=== PATIENT | female | born 2000 | race Caucasian/White ===

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

== ENCOUNTER 2019-01-21 23:16 | Emergency (ER) | payer MEDICAID, SELFPAY ==
[2019-01-21 23:18] VITALS: BP 131/78; PULSE 111; RESP 18; TEMP 36.8; O2SAT 95; BMI 47.7
--- NOTE | 2019-01-21 23:35 | ED.DCSUM_ITS ---
- ER Visit Summary Date of Service: 01/21/19 Chief Complaint: Wound check History of Present Illness: The patient is a 18 F who had a blister on her right posterior heel from a new pair shoes. He states she has had difficulty with that healing up as she has to wear those at this work but she has been putting a Band-Aid on it. Birgit her friend who is a state tested nurse janitorial assistant noted some black stuff in the blistered area she was concerned and told her to come to the emergency department. Physical Examination: There is a blister that has opened on the posterior right heel. In this sloughing area of skin is fuzz from her socks/shoe. No evidence of secondary infection Emergency Department Course and Treatment: Sock fuzz was removed with gentle washing and patient tolerated procedure well. Wound care was discussed and how best to treat this. She was advised if this does not heal she may end up with a chronic ulcer Impression: 1. Wound check-right heel blister This note was generated with [employer] dictation software. It may contain incorrect words, spelling, and punctuation that were not noted in review of the chart prior to signing ED Disposition - Plan for ED Patient: Disposition: Home or Assisted Living Instructions: Blister Referrals: Nataly Araujo MD [Primary Care Provider] - As Needed
== END 2019-01-21 23:46 | disposition home or self-care (01) ==
PROVIDERS: Emergency Provider Emergency Medicine; Family Provider Pediatrics; PCP Pediatrics
DX: S90.821A Blister (nonthermal), right foot, initial encounter (principal); X58.XXXA Exposure to other specified factors, initial encounter; Y93.9 Activity, unspecified; Y92.9 Unspecified place or not applicable; Y99.9 Unspecified external cause status; J45.909 Unspecified asthma, uncomplicated; E66.9 Obesity, unspecified
CPT/HCPCS: 99283

== ENCOUNTER 2019-04-13 15:50 | Emergency (ER) | payer MEDICAID, SELFPAY ==
[2019-04-13 15:54] VITALS: BP 120/78; PULSE 90; RESP 17; TEMP 36.9; O2SAT 98; BMI 46.1
--- NOTE | 2019-04-13 15:55 | EKG12_ITS ---
Test Reason : ANXIETY Blood Pressure : / mmHG Vent. Rate : 094 BPM Atrial Rate : 098 BPM P-R Int : 140 ms QRS Dur : 094 ms QT Int : 382 ms P-R-T Axes : 058 007 029 degrees QTc Int : 477 ms Sinus rhythm with marked sinus arrhythmia Otherwise normal ECG Confirmed by GERRI GARCIA, RAVI ([id number]), assistant production editor JORDI HOWARD ([id number] on 04/19/2019 1:30:50 PM Referred By: SHASTA Confirmed By:GERI TALLEY MD
--- NOTE | 2019-04-13 15:59 | ED.RN ---
NO OLD EKG
--- NOTE | 2019-04-13 16:06 | ED.DCSUM_ITS ---
- ER Visit Summary Date of Service: 04/13/19 Chief Complaint: Chest pain resolved History of Present Illness: The patient is a 18 F history of asthma and panic attacks. No history of cardiac disease. No history of DVT or PE. No recent travel, surgery or immobilization. She is not on control pills. States about a half an hour ago had onset of chest discomfort that lasted 2 minutes and resolved. It was sharp in nature. Currently is having no symptoms. Denies any leg pain or swelling. No pleuritic pain. No hemoptysis. She is not short of breath. No family history of cardiac disease at a young age or clotting disorder or blood clots. Physical Examination: Well-appearing 18-year-old no acute distress vital signs are stable afebrile. Pulse ox 90% on room air no signs of hypoxia. H EENT exam unremarkable. Neck nontender. No JVD. No lymphadenopathy. Lungs clear to auscultation bilaterally. Equal symmetrical. Heart regular rate and rhythm no murmur rate about 90. Chest wall nontender. No ecchymosis or bruising. No subcu air crepitance. Abdomen soft nontender normal bowel sounds no peritoneal signs. Extremities moves all 4. Equal symmetrical radial pulses. Calves are nontender without edema or cords. Back nontender. Neurologic exam awake alert no focal motor deficits. Test Results: EKG performed by respiratory staff shows a sinus rhythm rate of 94 with no signs of acute IN or ischemia. No [id number]. I did review the patient's old records and the last 1:45 thousand 18 she had an unremarkable chest x-ray. Granted she is pain-free and has a normal exam I do not think a chest x-ray is needed at this time. Emergency Department Course and Treatment: Pain is resolved. Exam is normal I think she needs no further work-up. I do not think this was a cardiac etiology and she has no PE risk factors. Her last menstrual period was a week ago. Treatment Plan: Outpatient follow-up as needed. Return if feeling a lot worse. Disposition: Discharge Impression: Chest pain uncertain etiology resolved History of panic attacks This note was generated with [employer] dictation software. It may contain incorrect words, spelling, and punctuation that were not noted in review of the chart prior to signing ED Disposition - Plan for ED Patient: Referrals: Nataly Araujo MD [Primary Care Provider] -
--- NOTE | 2019-04-13 16:09 | DCINST.ED_ITS ---
ED Disposition - Plan for ED Patient: Disposition: Home or Assisted Living Instructions: CHEST PAIN, Uncertain Cause Referrals: Nataly Araujo MD [Primary Care Provider] - 3-5 Days if not improving Additional Instructions: Clinically I think this was related to anxiety. Your physical exam is normal. Your EKG is normal. I do not think you need further testing. Follow-up with your doctor if not improving. Return to the ER if you are fee ling worse.
[2019-04-13 16:25] VITALS: BP 112/73; PULSE 79; RESP 16; O2SAT 98
== END 2019-04-13 16:25 | disposition home or self-care (01) ==
LOC: ED 16:16
PROVIDERS: Emergency Provider Emergency Medicine; PCP Pediatrics
DX: R07.9 Chest pain, unspecified (principal); F41.0 Panic disorder [episodic paroxysmal anxiety]; J45.909 Unspecified asthma, uncomplicated
CPT/HCPCS: 93005; 99285

== ENCOUNTER 2019-07-01 17:09 | Emergency (ER) | payer MEDICAID, SELFPAY ==
[2019-07-01 17:10] VITALS: BP 124/69; PULSE 139; RESP 18; TEMP 36.3; O2SAT 99; BMI 47.6
--- NOTE | 2019-07-01 17:16 | RAD_ITS ---
STUDY: X-RAY CHEST REASON FOR EXAM: Female, 18 years old. COUGH, FEVER, SOB, CHEST PAIN AND BODY ACHES TECHNIQUE: Single frontal view of the chest. COMPARISON: December 18, 2018 FINDINGS: There is no new focal consolidation. Normal size heart. Normal mediastinum and kalli. Normal visualized pulmonary arteries. Normal visualized aortic arch and descending thoracic aorta. Normal visualized thoracic spine. Normal visualized ribs, clavicles, and shoulders. There is no demonstrated abnormality of the visualized soft tissue structures of the upper abdomen. RAD/Chest 1 View (Portable) IMPRESSION: No acute cardiopulmonary process. Electronically Signed: Claritza Delatorre MD at 17:53 EDT Tel , Service support ,
--- NOTE | 2019-07-01 17:22 | ED.DCSUM_ITS ---
- ER Visit Summary Date of Service: 07/01/19 Chief Complaint: Cough History of Present Illness: The patient is a 18 F history anxiety asthma and borderline personality disorder with PTSD. Patient states she has had body aches subjective fever but not documented and nonproductive cough. Also states that she has a decreased sense of smell. No vomiting. She has had intermittent diarrhea. Physical Examination: Young female no acute distress vital signs stable afebrile. Pulse ox 99% room air no signs hypoxia. Temperature 97. HEENT exam normal. Moist his membranes. Neck nontender no lymphadenopathy. Lungs clear to auscultation bilaterally. Heart regular rhythm rate about 100 no murmur. Her initial presentation to triage was tachycardic but currently on my exam her heart rates around 100. Abdomen soft nontender normal bowel sounds no peritoneal signs. Patient moving all 4 extremities. Calves are nontender without edema or cords. Neurologically she is awake alert with no focal motor deficits. Test Results: Chest x-ray portable 1 view read by myself shows no acute abnormality. Normal cardiac silhouette and mediastinum. Emergency Department Course and Treatment: Patient has anxiety and PTSD. A lot of this may be she is just anxious and it could also be secondary to a URI or even COVID-19. Clinically she does not look ill. She is afebrile. Does not look septic or toxic. She does not look dehydrated. She is in no respiratory distress. She will not require admission. Treatment Plan: Symptomatic treatment. Tylenol and/or Motrin for body aches and fever. Follow-up with your doctor if not improving. Return emergency department if feeling a lot worse. Disposition: Discharge Impression: Acute viral URI Rule out COVID-19 Acute anxiety This note was generated with [employer] dictation software. It may contain incorrect words, spelling, and punctuation that were not noted in review of the chart prior to signing ED Disposition - Plan for ED Patient: Disposition: Home or Assisted Living Instructions: ED Viral Syndrome Referrals: Nataly Araujo MD [Primary Care Provider] - 1 Week if not improving Additional Instructions: Tylenol and/or Motrin as needed for fever. Plenty of fluids and rest. Return if feeling a lot worse or follow-up with your primary care physician if not improving.
--- NOTE | 2019-07-01 17:24 | ED.DEP ---
ED Disposition - Plan for ED Patient: Disposition: Home or Assisted Living Instructions: ED Viral Syndrome Referrals: Nataly Araujo MD [Primary Care Provider] - 1 Week if not improving Additional Instructions: Tylenol and/or Motrin as needed for fever. Plenty of fluids and rest. Return if feeling a lot worse or follow-up with your primary care physician if not improving.
== END 2019-07-01 17:59 | disposition home or self-care (01) ==
LOC: ED 17:47
PROVIDERS: Emergency Provider Emergency Medicine; PCP Pediatrics
DX: J06.9 Acute upper respiratory infection, unspecified (principal); F41.9 Anxiety disorder, unspecified; Z72.0 Tobacco use
CPT/HCPCS: 71045; 99282

== ENCOUNTER 2019-10-11 16:10 | Emergency (ER) | payer MEDICAID, SELFPAY ==
[2019-10-11 16:11] VITALS: BP 151/91; PULSE 135; RESP 16; TEMP 36.1; O2SAT 95; BMI 47.6
--- NOTE | 2019-10-11 16:26 | ED.DCSUM_ITS ---
- ER Visit Summary Date of Service: 10/11/19 Chief Complaint: ? History of Present Illness: The patient is a [address] Nataly Araujo. [facility] Naranjo. She has not seen a jewelry designer in quite some time. She is a G0, P0. She reports that her last menstrual period was July. She reports that she is had breast tenderness and nausea. She denies any vaginal bleeding or discharge. No abdominal pain. She denies any other complaints. Physical Examination: Vitals: Stable. Afebrile. General: Well-nourished and well-developed. Head: Normocephalic atraumatic. Neck: Supple, no lymphadenopathy. No JVD. Nontender. Cardiovascular: Tachycardic regular rhythm. No murmurs. Respiratory: No respiratory distress. Clear to auscultation bilaterally. Abdominal: Soft, nontender, nondistended, normal bowel sounds. No guarding, rebound, or peritoneal signs. Back: Nontender. Extremities: Nontender, no edema. Skin: Normal color, no rash. Neurologic: Alert and oriented ?3. Cranial nerves II through XII are intact. Normal strength and sensation. Psych: Normal affect. Emergency Department Course and Treatment: I had a prolonged discussion with the patient about obtaining a test here versus taking 1 at home. She has opted to buy a test and take this at home. Treatment Plan: Patient asked for a referral to Dr. Will Cleveland. She will be discharged with instructions to follow-up with her if she is . Otherwise she does understand that she needs to follow-up with jewelry designer to have a Pap smear. Return to the emergency department for any worsening symptoms. Disposition: To home in improved and stable condition. Impression: 1. Medical screening exam. This note was generated with [employer] dictation software. It may contain incorrect words, spelling, and punctuation that were not noted in review of the chart prior to signing ED Disposition - Plan for ED Patient: Instructions: ED CARE Referrals: Janina Matos MD [STAFF PHYSICIAN] - 1-2 Weeks
== END 2019-10-11 16:46 | disposition home or self-care (01) ==
LOC: ED 16:41
PROVIDERS: Emergency Provider Emergency Medicine; PCP Pediatrics
DX: Z00.00 Encounter for general adult medical examination without abnormal findings (principal); F17.200 Nicotine dependence, unspecified, uncomplicated; J45.909 Unspecified asthma, uncomplicated
CPT/HCPCS: 99282

== ENCOUNTER 2019-11-30 15:58 | Emergency (ER) | payer MEDICAID, SELFPAY ==
[2019-11-30] VITALS (8 sets, daily range): BP systolic 121–136; BP diastolic 84–110; PULSE 98–112; RESP 16–18; TEMP 36.7–36.8; O2SAT 97–98; BMI 47.6
--- NOTE | 2019-11-30 16:36 | ED.DCSUM_ITS ---
- ER Visit Summary Date of Service: 11/30/19 Chief Complaint: Mental health evaluation History of Present Illness: The patient is a 19 F presenting for mental health evaluation. Patient states that she is suicidal on a daily basis. She has had thoughts of cutting herself with a razor. Her friend called the police today for a welfare check because her therapy cat yesterday. She states the therapy cat usually helped her function. She has been off her medications for several months. She has a history of anxiety, depression, borderline, PTSD, eating disorder. Per police her house was infested with fleas and had a foul odor. They did not believe that she can care for herself. [place] slip completed by police. Physical Examination: Vitals are stable. Patient is afebrile. Alert no acute distress. HEENT exam is unremarkable. Neck is supple. Lungs are clear and equal bilaterally. Heart is regular rate and rhythm. Abdomen is soft nontender nondistended. Extremities are unremarkable. Skin is warm and dry. No focal neurologic deficit. Depressed affect, flight of ideas, suicidal ideation Remainder of exam is unremarkable. Emergency Department Course and Treatment: CBC, chemistries unremarkable. hCG negative. Tox is pending. Patient was evaluated by the transition social worker in the emergency department. Disposition per social work. Disposition: per Social work Impression: Suicidal ideation, inability to care for self This note was generated with [employer] dictation software. It may contain incorrect words, spelling, and punctuation that were not noted in review of the chart prior to signing ED Disposition - Plan for ED Patient: Referrals: Nataly Araujo MD [Primary Care Provider] -
[2019-11-30 16:39] LABS: Absolute Neutrophil Count 7.5 X10^3/uL (2.0-7.7); Basophil# 0.07 X10^3/uL; Basophil% 0.6 % (0-1); Eosinophil# 0.41 X10^3/uL; Eosinophils% 3.7 % (0-5); Hematocrit 42.6 % (37-47); Hemoglobin 13.2 g/dL (12.0-15.0); Lymphocyte % 23.3 % (19-41); Mean Corpuscular Hgb 25.2 pg (27.0-32.0); Mean Corpuscular Volume 81.5 fL (81-99); Mean Platelet Vol. 10.2 fl (6.2-12.0); Monocyte# 0.53 X10^3/uL; Monocyte% 4.8 % (0-10); NRBC Flagged by Analyzer 0 % (0-5); Neutrophil # 7.48 X10^3/uL (2.7-7.7); Neutrophil % 67.2 % (47-70); Platelet Count 352 K/mm3 (150-450); RBC Distribution Width CV 15.1 % (11.6-14.6); RBC Distribution Width SD 44.5 fl (35.1-43.9); Red Blood Count 5.23 M/mm3 (4.2-5.4); White Blood Count 11.1 K/mm3 (4.4-11.0)
[2019-11-30 16:50] LABS: Anion Gap 5 (5-15); BUN 10 mg/dL (7-18); BUN/Creat Ratio 12.3 RATIO (10-20); Calcium,Total 8.7 mg/dL (8.5-10.1); Chloride 107 mmol/L (98-107); Creatinine, Serum 0.81 mg/dL (0.55-1.02); EST Glomerular Filtration Rate 96 mL/min (>60); Est Glom Filt Rate - Afr Amer 116 mL/min (>60); Estimated Creatinine Clearance 103.71 ml/min; Glucose 121 mg/dL (74-106); Potassium 3.5 mmol/L (3.5-5.1); Sodium Level 139 mmol/L (136-145)
[2019-11-30 16:52] LABS: Internal QC Validated? YES +Cl - CLEAR BKGD; Pregnancy, Serum, hCG Quali. NEGATIVE Negative
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
[2019-11-30 17:21] LABS: Alcohol, Blood (Medical)-Serum < 3.0 mg/dL
[2019-11-30 17:43] LABS: Amphetamine Urine VISTA NEGATIVE (<1000 ng/mL); Barbiturate Urine VISTA NEGATIVE (< 200 ng/mL); Benzodiazepine Urine VISTA NEGATIVE (< 200 ng/mL); Cocaine Urine VISTA NEGATIVE (< 300 ng/mL); Ecstacy Urine VISTA NEGATIVE (< 500 ng/mL); Methadone Urine VISTA NEGATIVE (< 300 ng/mL); PCP Urine VISTA NEGATIVE (< 25 ng/mL); THC Urine VISTA NEGATIVE (< 50 ng/mL); Vista UDS pH Range 6
--- NOTE | 2019-11-30 17:48 | CM.ED ---
Social Work Clinical information faxed to [facility]. Intake information provided to Jazzy. Jazzy to review and get back to this psych social worker. Emery COMER, MADELAINE
--- NOTE | 2019-11-30 18:45 | EKG12_ITS ---
Test Reason : Blood Pressure : / mmHG Vent. Rate : 083 BPM Atrial Rate : 083 BPM P-R Int : 130 ms QRS Dur : 092 ms QT Int : 358 ms P-R-T Axes : 046 010 029 degrees QTc Int : 420 ms Normal sinus rhythm with sinus arrhythmia Normal ECG Confirmed by JAELYN GARCIA, LEONARD ([id number]), newspaper copy editor ALON LAKHANI ([id number]) on 12/06/2019 1:04:31 PM Referred By: Confirmed By:LEONARD CHRISTY MD
--- NOTE | 2019-11-30 19:48 | CM.ED ---
Social Work Telephone call from Jazzy Valdes. Patient has been accepted pending COVID-19 results. COVID-19 test results to be faxed when obtained. Emery COMER, MADELAINE
--- NOTE | 2019-11-30 22:30 | ED.RN ---
[facility] HERE FOR TRANSPORT.
== END 2019-11-30 22:29 | disposition home or self-care (01) ==
LOC: ED 16:27
PROVIDERS: Emergency Provider Emergency Medicine; PCP Pediatrics
DX: R45.851 Suicidal ideations (principal)
CPT/HCPCS: 80048; 80307; 80320; 84703; 85025; 87635; 93005; 99285; G0480; U0003

== ENCOUNTER 2020-01-26 05:17 | Emergency (ER) | payer MEDICAID, SELFPAY ==
[2019-11-30 15:59] VITALS: BMI 47.6
[2020-01-26 05:18] VITALS: BP 148/100; PULSE 120; RESP 18; TEMP 36.4; O2SAT 98; BMI 45.1
--- NOTE | 2020-01-26 05:20 | ED.DCSUM_ITS ---
History of Present Illness Chief Complaint: Anxiety Informant: Patient Onset: Days Context: Gradual Onset Timing: Continuous Current Severity: Moderate Maximum Severity: Severe Narrative: Patient is a 19-year-old female with history of depression and bipolar disorder who presents to the emergency department with increasing anxiety and suicidal thoughts. Patient states that she has been having significant anxiety. She states for the past 3 days, she wakes in a panic. She states she feels like she cannot catch her breath. She denies fevers or chills. She states her anxiety is to the point where she has been having intrusive thoughts of self-harm. She does not have any specific plan of suicide, but states she does not feel safe. She does have prior suicide attempt. She denies drugs or alcohol. She states she is been compliant with her medications. Her therapist and psychiatrist recently stopped seeing her 7 months ago. She is very vague on the details. She states that she has been trying to get through this herself with little improvement. Prior similar symptoms: Yes Recent Illness/Hospitalization: No Past Medical History - Allergies and Home Meds Allergies/Adverse Reactions: Allergies TIDE Allergy (Unknown, Uncoded 01/26/20 05:21) Prabha Primary Care Physician: Care Physician,No Primary [NON-STAFF] - Prior records reviewed: Yes Past Medical History: - - Depression Surgical History: noncontributory Smoking Status: Former smoker Review of Systems General: Denies: Chills, Fever, Sweats Eyes: Denies: Visual changes - bilaterally, Diplopia ENT: Denies: Rhinorrhea, Sore throat Cardiovascular: Denies: Chest pain, Palpitations Respiratory: Denies: Dyspnea, Cough, Dyspnea on exertion Gastrointestinal: Denies: Abdominal pain, Nausea, Vomiting, Diarrhea, Melena, Hematochezia Genitourinary: Denies: Dysuria, Hematuria, Frequency Musculoskeletal: Denies: Back pain, Extremity Pain Skin: Denies: Rash, Wounds Neurological: Denies: Headache, Weakness, Numbness Psych: Reports: Anxiety, Suicidal thoughts Physical Exam Inital Vital Signs reviewed: Yes General: Well nourished, Well developed, No Acute Distress Head: Normocephalic, Atraumatic Eyes: Perrl, EOMI ENT: Moist mucous membranes, No rhinorrhea Neck: Supple, Nontender Cardiovascular: Regular rate, Regular rhythm, No murmurs Respiratory: No distress, CTA bilaterally, Chest nontender Abdomen: Soft, Nontender, Nondistended, Normal bowel sounds Back: Nontender, Normal Inspection Extremities: Nontender, No edema Skin: Normal color, No rash Neurological: Alert, Oriented x3, Cranial nerves II-XII grossly intact, Normal Strength, Normal Sensation Psychological: Depressed Diagnostic/Tx/Re-eval Abnormal Lab Results 01/26/20 01/26/20 01/26/20 05:40 05:40 05:40 WBC 13.0 H RBC 5.36 Hgb 13.7 Hct 42.7 MCV 79.7 L MCH 25.6 L MCHC 32.1 RDW Std Deviation 41.5 RDW Coeff of Sharonda 14.5 Plt Count 343 MPV 9.9 Immature Gran % (Auto) 0.300 Neut % (Auto) 61.8 Lymph % (Auto) 27.3 [place] % (Auto) 4.4 Eos % (Auto) 5.7 H Baso % (Auto) 0.5 Absolute Neuts (auto) 8.0 H Absolute Lymphs (auto) 3.55 Nucleated RBC % 0 Sodium 142 Potassium 3.3 L Chloride 111 H Carbon Dioxide 27.0 Anion Gap 4 L BUN 11 Creatinine 0.70 Estim Creat Clear Calc 124.67 Est GFR (MDRD) Af Amer 137 Est GFR (MDRD) Non-Af 113 BUN/Creatinine Ratio 15.7 Glucose 99 Calcium 8.7 Serum , Qual Urine Opiates Screen Urine Methadone Screen Ur Barbiturates Screen Ur Phencyclidine Scrn Ur Amphetamines Screen U Methamphetamin-MDMA U Benzodiazepines Scrn Urine Cocaine Screen U Cannabinoids Screen Ur Drug Screen Comment Ethyl Alcohol < 3.0 01/26/20 01/26/20 05:40 05:40 WBC RBC Hgb Hct MCV MCH MCHC RDW Std Deviation RDW Coeff of Sharonda Plt Count MPV Immature Gran % (Auto) Neut % (Auto) Lymph % (Auto) [place] % (Auto) Eos % (Auto) Baso % (Auto) Absolute Neuts (auto) Absolute Lymphs (auto) Nucleated RBC % Sodium Potassium Chloride Carbon Dioxide Anion Gap BUN Creatinine Estim Creat Clear Calc Est GFR (MDRD) Af Amer Est GFR (MDRD) Non-Af BUN/Creatinine Ratio Glucose Calcium Serum , Qual NEGATIVE Urine Opiates Screen NEGATIVE Urine Methadone Screen NEGATIVE Ur Barbiturates Screen NEGATIVE Ur Phencyclidine Scrn NEGATIVE Ur Amphetamines Screen NEGATIVE U Methamphetamin-MDMA NEGATIVE U Benzodiazepines Scrn NEGATIVE Urine Cocaine Screen NEGATIVE U Cannabinoids Screen NEGATIVE Ur Drug Screen Comment Ethyl Alcohol - Medical Decision Making The patient presents with suicidal thoughts and increasing anxiety. She states that she has had thoughts of self-harm, but denies any specific plan. Patient underwent metabolic work-up. At this point, she has medically cleared for psychiatric evaluation. The patient does have thoughts of self-harm, but no specific plan. She will undergo crisis evaluation to determine appropriate disposition. Impression 1. Anxiety 2. Suicidal thoughts ED Disposition - Plan for ED Patient: Referrals: Care Physician,No Primary [NON-STAFF] -
[2020-01-26 05:46] LABS: Absolute Lymphocyte Count 3.55 X10^3/uL (0.83-4.51); Basophil# 0.07 X10^3/uL; Basophil% 0.5 % (0-1); Eosinophil# 0.74 X10^3/uL; Eosinophils% 5.7 % (0-5); Hematocrit 42.7 % (37-47); Hemoglobin 13.7 g/dL (12.0-15.0); Lymphocyte # 3.55 X10^3/ul (4.0); Lymphocyte % 27.3 % (19-41); Mean Corp Hgb Conc 32.1 g/dL (32-36); Mean Corpuscular Hgb 25.6 pg (27.0-32.0); Mean Corpuscular Volume 79.7 fL (81-99); Mean Platelet Vol. 9.9 fl (6.2-12.0); Monocyte# 0.57 X10^3/uL; Monocyte% 4.4 % (0-10); NRBC Flagged by Analyzer 0 % (0-5); Neutrophil # 8.04 X10^3/uL (2.7-7.7); Neutrophil % 61.8 % (47-70); Platelet Count 343 K/mm3 (150-450); RBC Distribution Width CV 14.5 % (11.6-14.6); RBC Distribution Width SD 41.5 fl (35.1-43.9); Red Blood Count 5.36 M/mm3 (4.2-5.4)
[2020-01-26 05:56] LABS: Internal QC Validated? YES +Cl - CLEAR BKGD
[2020-01-26 05:57] LABS: Pregnancy, Serum, hCG Quali. NEGATIVE Negative
[2020-01-26 06:00] LABS: Alcohol, Blood (Medical)-Serum < 3.0 mg/dL
[2020-01-26 06:01] LABS: Anion Gap 4 (5-15); BUN 11 mg/dL (7-18); BUN/Creat Ratio 15.7 RATIO (10-20); Calcium,Total 8.7 mg/dL (8.5-10.1); Chloride 111 mmol/L (98-107); EST Glomerular Filtration Rate 113 mL/min (>60); Est Glom Filt Rate - Afr Amer 137 mL/min (>60); Estimated Creatinine Clearance 124.67 ml/min; Glucose 99 mg/dL (74-106); Potassium 3.3 mmol/L (3.5-5.1); Sodium Level 142 mmol/L (136-145)
[2020-01-26 06:02] LABS: Amphetamine Urine VISTA NEGATIVE (<1000 ng/mL); Barbiturate Urine VISTA NEGATIVE (< 200 ng/mL); Benzodiazepine Urine VISTA NEGATIVE (< 200 ng/mL); Cocaine Urine VISTA NEGATIVE (< 300 ng/mL); Ecstacy Urine VISTA NEGATIVE (< 500 ng/mL); Methadone Urine VISTA NEGATIVE (< 300 ng/mL); PCP Urine VISTA NEGATIVE (< 25 ng/mL); THC Urine VISTA NEGATIVE (< 50 ng/mL); Vista UDS pH Range 5
[2020-01-26] MEDS: LORazepam 1 MG Tablet PO (06:08)
[2020-01-26 06:09] VITALS: RESP 16
--- NOTE | 2020-01-26 06:23 | ED.RN ---
[facility] CONTACTED, JUAN R CALLED BACK AND REPORT WAS FAXED
--- NOTE | 2020-01-26 07:00 | NURSING ---
SHAN BULL, FOR PATIENT. ON PHONE
[2020-01-26 07:54] VITALS: BP 140/82; PULSE 100; RESP 16; O2SAT 99
--- NOTE | 2020-01-26 08:10 | NURSING ---
BURTON, SHAN, CALLED. PATIENT GONG TO [facility]. THEY NEED EKG AND COVID TEST FAXED TO THEM.
--- NOTE | 2020-01-26 08:15 | NURSING ---
FAXED CHART TO [facility]IS[facility] OFFICE [phone]
--- NOTE | 2020-01-26 08:18 | NURSING ---
FAXED EKG, COVID AND DICTATION TO [facility] [phone]
--- NOTE | 2020-01-26 08:20 | EKG12_ITS ---
Test Reason : [facility] [place] Blood Pressure : / mmHG Vent. Rate : 089 BPM Atrial Rate : 089 BPM P-R Int : 152 ms QRS Dur : 096 ms QT Int : 374 ms P-R-T Axes : 066 000 034 degrees QTc Int : 455 ms Normal sinus rhythm Normal ECG Confirmed by MINERVA GARCIA, KIMBERLY ([id number]), editor in chief newspaper ALON LAKHANI ([id number]) on 01/30/2020 1:03:58 PM Referred By: JAKY Confirmed By:KIMBERLY PALMA MD
--- NOTE | 2020-01-26 08:53 | ED.RN ---
waiting for dr to review chart. ecpect pt will be accepted
--- NOTE | 2020-01-26 09:00 | ED.RN ---
[facility] CALL[facility] TO ACCEPT PT. THEY ARE ARRANGING TRANSPORT. TALKED WITH YAYO. REPORT GIVEN
--- NOTE | 2020-01-26 09:11 | NURSING ---
CALLED [facility], ETA IS 90 MIN
[2020-01-26 10:24] VITALS: BP 138/78; PULSE 89; RESP 16; O2SAT 100
== END 2020-01-26 11:30 ==
LOC: ED 06:07
PROVIDERS: Emergency Provider Emergency Medicine; PCP Pediatrics
DX: F41.9 Anxiety disorder, unspecified (principal); F31.9 Bipolar disorder, unspecified; R45.851 Suicidal ideations; Z91.5 Personal history of self-harm; Z87.891 Personal history of nicotine dependence
CPT/HCPCS: 80048; 80307; 80320; 84703; 85025; 87426; 93005; 99285; G0480

== ENCOUNTER 2020-02-08 17:44 | Emergency (ER) | payer MEDICAID, SELFPAY ==
[2020-02-08 17:45] VITALS: BP 129/78; PULSE 111; RESP 16; TEMP 36.4; O2SAT 97; BMI 48.4
--- NOTE | 2020-02-08 18:21 | ED.DCSUM_ITS ---
- ER Visit Summary Date of Service: 02/08/20 Chief Complaint: Suicidal thoughts and anxiety History of Present Illness: The patient is a 19 F who reports that yesterday 2 people important to me left my life. She would not expand on this. She reports that since that time she has had suicidal thoughts. She also feels very anxious. States that she was hospitalized approximately 1 week ago at [facility] for suicidal ideation. She was also hospitalized 2 months ago to [facility] for suicidal ideation. Patient reports that she does not have a plan. Physical Examination: Vitals: Stable. Afebrile. General: Well-nourished and well-developed. Head: Normocephalic atraumatic. Neck: Supple, no lymphadenopathy. No JVD. Nontender. Cardiovascular: Regular rate and rhythm. No murmurs. Respiratory: No respiratory distress. Clear to auscultation bilaterally. Abdominal: Soft, nontender, nondistended, normal bowel sounds. No guarding, rebound, or peritoneal signs. Back: Nontender. Extremities: Nontender, no edema. Skin: Normal color, no rash. Neurologic: Alert and oriented ?3. Cranial nerves II through XII are intact. Normal strength and sensation. Mental status exam: Patient appears their stated age. Good posture and grooming. Good eye contact. Normal rate, volume, and latency of speech. No homicidal ideation. No auditory or visual hallucinations. Flow of thought is logical. Insight and judgment is fair. Test Results: CBC shows a white count of 14.6 with 77 segmented neutrophils and 18 lymphocytes. Chem-7 shows a potassium 3.3 and glucose 114. test is negative. Alcohol is negative. Emergency Department Course and Treatment: Patient was discussed with case management. She is resting comfortably. She was able to contract for safety. Treatment Plan: Patient is given information and referred to the intensive outpatient treatment clinic. Return to the emergency department for any further thoughts of harming herself. Disposition: To home in improved and stable condition. Impression: 1. Suicidal thoughts. 2. Anxiety. This note was generated with [employer] software. It may contain incorrect words, spelling, and punctuation that were not noted in review of the chart prior to signing ED Disposition - Plan for ED Patient: Instructions: ED Depression Referrals: Behavioral,Health [facility] [GROUP OF PHYSICIANS] - 1 Day
[2020-02-08 18:47] LABS: Absolute Lymphocyte Count 2.62 X10^3/uL (0.83-4.51); Absolute Neutrophil Count 11.2 X10^3/uL (2.0-7.7); Basophil# 0.05 X10^3/uL; Basophil% 0.3 % (0-1); Eosinophil# 0.15 X10^3/uL; Hematocrit 40.6 % (37-47); Hemoglobin 12.8 g/dL (12.0-15.0); Lymphocyte # 2.62 X10^3/ul (4.0); Lymphocyte % 17.9 % (19-41); Mean Corp Hgb Conc 31.5 g/dL (32-36); Mean Corpuscular Hgb 25.1 pg (27.0-32.0); Mean Corpuscular Volume 79.8 fL (81-99); Mean Platelet Vol. 9.6 fl (6.2-12.0); Monocyte# 0.53 X10^3/uL; Monocyte% 3.6 % (0-10); NRBC Flagged by Analyzer 0 % (0-5); Neutrophil # 11.18 X10^3/uL (2.7-7.7); Neutrophil % 76.7 % (47-70); Platelet Count 372 K/mm3 (150-450); RBC Distribution Width SD 40.1 fl (35.1-43.9); Red Blood Count 5.09 M/mm3 (4.2-5.4); White Blood Count 14.6 K/mm3 (4.4-11.0)
[2020-02-08 18:55] LABS: Internal QC Validated? YES +Cl - CLEAR BKGD; Pregnancy, Serum, hCG Quali. NEGATIVE Negative
[2020-02-08 19:00] LABS: Alcohol, Blood (Medical)-Serum < 3.0 mg/dL
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
[2020-02-08 19:01] LABS: Anion Gap 6 (5-15); BUN 10 mg/dL (7-18); BUN/Creat Ratio 13.8 RATIO (10-20); Chloride 106 mmol/L (98-107); Creatinine, Serum 0.72 mg/dL (0.55-1.02); EST Glomerular Filtration Rate 109 mL/min (>60); Est Glom Filt Rate - Afr Amer 131 mL/min (>60); Estimated Creatinine Clearance 112.15 ml/min; Glucose 114 mg/dL (74-106); Potassium 3.3 mmol/L (3.5-5.1); Sodium Level 140 mmol/L (136-145)
[2020-02-08 19:20] VITALS: RESP 16
[2020-02-08 19:42] LABS: Amphetamine Urine VISTA NEGATIVE (<1000 ng/mL); Barbiturate Urine VISTA NEGATIVE (< 200 ng/mL); Benzodiazepine Urine VISTA NEGATIVE (< 200 ng/mL); Cocaine Urine VISTA NEGATIVE (< 300 ng/mL); Ecstacy Urine VISTA NEGATIVE (< 500 ng/mL); Methadone Urine VISTA NEGATIVE (< 300 ng/mL); PCP Urine VISTA NEGATIVE (< 25 ng/mL); THC Urine VISTA NEGATIVE (< 50 ng/mL); Vista UDS pH Range 5
--- NOTE | 2020-02-09 11:05 | CM.ED ---
SOCIAL WORK Follow up call Call to patient to follow up on safety plan and visit last evening. Patient reports, I'm doing OK. Patient states received call from [facility] this morning and appointment is at 2:30p. Patient denies any issues or concerns at this time. Winnie Odom, TOWNSHIP CLERK, ADDICTION SPECIALIST
== END 2020-02-08 19:20 | disposition home or self-care (01) ==
PROVIDERS: Emergency Provider Emergency Medicine; PCP Pediatrics
DX: R45.851 Suicidal ideations (principal); F41.9 Anxiety disorder, unspecified; F31.9 Bipolar disorder, unspecified; F43.10 Post-traumatic stress disorder, unspecified; F40.00 Agoraphobia, unspecified; Z72.0 Tobacco use
CPT/HCPCS: 80048; 80307; 80320; 84703; 85025; 87426; 99284; G0480

== ENCOUNTER → 2020-02-14 14:48 | Outpatient (CLI) | payer MEDICAID, SELFPAY ==
[2020-02-14 14:20] VITALS: BMI 47.5
[2020-02-14 15:59] LABS: HIV - WCH Non-Reactive (Nonreactive)
[2020-02-14 19:31] LABS: Chlamydia Trachomatis by PCR Negative (Negative); Neisserai gonorrhoeae by PCR Negative (Negative); Probe Check PASS; Sample Adequacy Control PASS; Specimen Processing Control PASS
[2020-02-16 02:22] LABS: Rapid Plasmin Reagin (RPR) NONREACTIVE (NONREACTIVE)
[2020-02-16 20:07] LABS: HCV Quant. RNA PCR HCV Not Detected IU/mL (.)
[2020-02-16 21:43] LABS: HSV 1 IgG < 0.91 index (0.00-0.90); HSV 2 IgG 5.28 index (0.00-0.90)
== END ==
PROVIDERS: PCP Pediatrics; Referring Provider Nurse Practitioner Women's Health; Visit Provider Nurse Practitioner Women's Health
DX: Z11.3 Encounter for screening for infections with a predominantly sexual mode of transmission (principal)
CPT/HCPCS: 36415; 86592; 86695; 86696; 86703; 87491; 87522; 87591

== ENCOUNTER 2020-02-15 20:27 | Emergency (ER) | payer MEDICAID, SELFPAY ==
[2020-02-14 14:20] VITALS: BMI 47.5
[2020-02-15 20:28] VITALS: BP 157/102; PULSE 162; RESP 20; TEMP 37.1; O2SAT 99; BMI 46.7
[2020-02-15 20:57] VITALS: BP 134/79; PULSE 131; RESP 25; O2SAT 98
--- NOTE | 2020-02-15 20:57 | RAD_ITS ---
STUDY: X-RAY CHEST REASON FOR EXAM: Female, 19 years old. Pt with anxiety and tachycardia TECHNIQUE: Single frontal view of the chest. COMPARISON: June FINDINGS: The lungs are clear and expanded. There is no demonstrated pleural abnormality. Normal size heart. Normal mediastinum and kalli. Normal visualized pulmonary arteries. Normal visualized aortic arch and descending thoracic aorta. Normal visualized thoracic spine. Normal visualized ribs, clavicles, and shoulders. There is no demonstrated abnormality of the visualized soft tissue structures of the upper abdomen. RAD/Chest 1 View (Portable) IMPRESSION: Normal x-ray examination of the chest. Electronically Signed: Albino Dominique MD at 22:19 EST , Service support ,
--- NOTE | 2020-02-15 21:14 | ED.VIS.GEN ---
History of Present Illness Chief Complaint: General Illness Informant: Patient Narrative: Patient is a 19-year-old female who presents to the emergency department for chest pain. She states that she was smoking marijuana whenever her symptoms started. She does feel short of breath with this. She does have a history of anxiety. Relieving factors. She is having palpitations. EMS did perform an EKG which showed the patient to be in a supra ventricular tachycardia. She denies any recent illness including any cough, cold, congestion symptoms. No fevers or chills. No abdominal pain or nausea/vomiting. She does have chronic pain in her lower extremities but denies any swelling. No history of heart attacks or DVT/PE. She states she has a hole in her heart. She denies any issues with other drug use. She states she did get a new dealer. Somebody also smoking with her and did not have any other symptoms. She denies any alcohol use. Past Medical History - Allergies and Home Meds Allergies/Adverse Reactions: Allergies TIDE Allergy (Unknown, Uncoded 02/14/20 14:24) [facility] Primary Care Physician: Nataly Araujo MD [Primary Care Provider] - 3-5 Days Prior records reviewed: Yes - Bipolar, personality disorder Surgical History: noncontributory Smoking Status: Current every day smoker Review of Systems General: Denies: Chills, Fever, Sweats Eyes: Denies: Visual changes - bilaterally, Diplopia ENT: Denies: Rhinorrhea, Sore throat Cardiovascular: Reports: Chest pain, Palpitations, Heart racing Respiratory: Reports: Dyspnea. Denies: Cough, Dyspnea on exertion Gastrointestinal: Denies: Abdominal pain, Nausea, Vomiting Genitourinary: Denies: Dysuria, Hematuria, Frequency Musculoskeletal: Denies: Back pain, Swelling Skin: Denies: Rash, Wounds Neurological: Denies: Headache, Weakness, Numbness Physical Exam Vital Signs/Narrative: Vital Signs Temp Pulse Resp BP Pulse Ox 02/15/20 20:57 131 H 25 H 134/79 H 98 02/15/20 20:28 98.8 F 162 H 20 H 157/102 H 99 Inital Vital Signs reviewed: Yes General: Well nourished, Well developed, No Acute Distress Head: Normocephalic, Atraumatic Eyes: Perrl, EOMI ENT: Moist mucous membranes, No rhinorrhea Neck: Supple, Nontender Cardiovascular: Regular rhythm, No murmurs, Tachycardia Respiratory: No distress, CTA bilaterally, Chest nontender Abdomen: Soft, Nontender, Nondistended, Normal bowel sounds Back: Nontender, Normal Inspection Extremities: Nontender, No edema. Negative for: Calf Tenderness Skin: Normal color, No rash Neurological: Alert, Oriented x3, Cranial nerves II-XII grossly intact, Normal Strength, Normal Sensation Psychological: Normal affect, Normal Mood Diagnostic/Tx/Re-eval Chest X-Ray - ED: - - EKG Initial EKG Interpretation: - - Rate of 145 bpm and a sinus tachycardia. Normal intervals. Normal axis. No significant ST elevations or depressions. No T wave abnormality. - Medical Decision Making Patient presents to the ED for chest pain, shortness of breath and heart palpitations after smoking marijuana just prior to arrival. She did have a heart rate at 170 upon arrival to the ED and had a EMS EKG show SVT. Vagal maneuvers were attempted with carotid massage as well as blowing into a syringe and leaning backwards. This did get her heart rate down into the 130s but slowly trended back up. After IV was inserted she did become stable in the 130s which does appear to be sinus now. Will check basic lab work and start IV fluids. Patient does have an elevated white blood cell count but this is most likely reactive. X-ray does not show any signs of acute consolidation. The rest of her lab work is unremarkable. Electrolytes within normal limits. Troponin is negative. She is feeling much better after IV fluids and is requesting to be discharged. She is no longer having any chest pain or shortness of breath. I have low concern for pulmonary embolism. This most likely related to the marijuana use and she states she is going to quit using this now. At this time patient is discharged per her request. Her heart rate at time of discharge is right at 100 bpm. She is to follow-up with her PCP. Warning signs and symptoms which to return to the ED are reviewed. She understands and is agreeable this plan. Discharged in stable condition. All questions answered. ED Disposition - Plan for ED Patient: Disposition: Home or Assisted Living Diagnosis: SVT (supraventricular tachycardia), Substance abuse, Chest pain Instructions: ED About Arrhythmias, ED Chest Pain, Uncertain Cause, ED Drug Abuse Referrals: Nataly Araujo MD [Primary Care Provider] - 3-5 Days
[2020-02-15 21:20] LABS: Absolute Lymphocyte Count 4.29 X10^3/uL (0.83-4.51); Basophil# 0.07 X10^3/uL; Basophil% 0.4 % (0-1); Eosinophils% 3.8 % (0-5); Hematocrit 44.6 % (37-47); Hemoglobin 13.9 g/dL (12.0-15.0); Lymphocyte # 4.29 X10^3/ul (4.0); Lymphocyte % 27.3 % (19-41); Mean Corp Hgb Conc 31.2 g/dL (32-36); Mean Corpuscular Hgb 25.2 pg (27.0-32.0); Mean Corpuscular Volume 80.8 fL (81-99); Mean Platelet Vol. 11.2 fl (6.2-12.0); Monocyte# 0.76 X10^3/uL; Monocyte% 4.8 % (0-10); NRBC Flagged by Analyzer 0 % (0-5); Neutrophil # 9.95 X10^3/uL (2.7-7.7); Neutrophil % 63.4 % (47-70); POSITIVE COUNT YES; Platelet Count 217 K/mm3 (150-450); RBC Distribution Width CV 14.2 % (11.6-14.6); RBC Distribution Width SD 41.1 fl (35.1-43.9); Red Blood Count 5.52 M/mm3 (4.2-5.4); White Blood Count 15.7 K/mm3 (4.4-11.0)
[2020-02-15 21:23] LABS: Differential Indicated SCAN CRITERIA MET
[2020-02-15 21:34] VITALS: BP 145/92; PULSE 119; RESP 20; O2SAT 99
[2020-02-15 21:35] LABS: Anion Gap 7 (5-15); BUN 10 mg/dL (7-18); BUN/Creat Ratio 10.9 RATIO (10-20); Calcium,Total 9.3 mg/dL (8.5-10.1); Chloride 105 mmol/L (98-107); Creatinine, Serum 0.92 mg/dL (0.55-1.02); EST Glomerular Filtration Rate 83 mL/min (>60); Est Glom Filt Rate - Afr Amer 100 mL/min (>60); Estimated Creatinine Clearance 91.31 ml/min; Glucose 94 mg/dL (74-106); Potassium 3.9 mmol/L (3.5-5.1); Sodium Level 139 mmol/L (136-145)
[2020-02-15 21:45] LABS: Internal QC Validated? YES +Cl - CLEAR BKGD; Pregnancy, Serum, hCG Quali. NEGATIVE Negative
[2020-02-15] MEDS: 0.9% Normal Saline 1,000 ML 999 ML IV (21:51)
[2020-02-15 21:58] LABS: Amphetamine Urine VISTA NEGATIVE (<1000 ng/mL); Barbiturate Urine VISTA NEGATIVE (< 200 ng/mL); Benzodiazepine Urine VISTA NEGATIVE (< 200 ng/mL); Cocaine Urine VISTA NEGATIVE (< 300 ng/mL); Ecstacy Urine VISTA NEGATIVE (< 500 ng/mL); Methadone Urine VISTA NEGATIVE (< 300 ng/mL); PCP Urine VISTA NEGATIVE (< 25 ng/mL); THC Urine VISTA POSITIVE (< 50 ng/mL); Vista UDS pH Range 6
[2020-02-15 21:59] LABS: Differential Comment SCANNED
[2020-02-15 22:31] VITALS: BP 104/68; PULSE 108; RESP 20; O2SAT 98
[2020-02-15 22:46] VITALS: PULSE 108; RESP 16
== END 2020-02-15 22:50 | disposition home or self-care (01) ==
PROVIDERS: Emergency Provider Emergency Medicine; PCP Pediatrics
DX: I47.1 Supraventricular tachycardia (principal); F12.10 Cannabis abuse, uncomplicated; F31.9 Bipolar disorder, unspecified; F60.9 Personality disorder, unspecified; F41.9 Anxiety disorder, unspecified; F17.200 Nicotine dependence, unspecified, uncomplicated; R07.9 Chest pain, unspecified
CPT/HCPCS: 71045; 80048; 80307; 84484; 84703; 85025; 93005; 96360; 99285; J7030; A4216; J0153

== ENCOUNTER 2020-02-20 14:54 | Emergency (ER) | payer MEDICAID, SELFPAY ==
[2020-02-20 14:55] VITALS: BP 147/89; PULSE 108; RESP 17; TEMP 35.8; O2SAT 95; BMI 45.3
--- NOTE | 2020-02-20 15:17 | ED.VIS.GEN ---
History of Present Illness Chief Complaint: Mental Health Informant: Patient Narrative: Patient brought in by police for cutting behavior. Patient does have history of bipolar disorder. She has been evaluated multiple times recently for anxiety and suicidal ideation. Patient states that she got into a disagreement with her friend today. She cuts to release her feelings and to feel pain, but states she has no intention to kill herself. She made multiple linear superficial lacerations on her thighs. She states she then got a phone call from her doctor and needed to give an update to this friend which got her upset again. She cut again. Patient continues to deny suicidal ideation. She does have a counselor through and [facility]. - Past Medical History (1) Borderline personality disorder Status: Chronic (2) PTSD (post-traumatic stress disorder) Status: Chronic Past Medical History - Allergies and Home Meds Allergies/Adverse Reactions: Allergies TIDE Allergy (Unknown, Uncoded 02/20/20 14:55) Hives Surgical History: noncontributory Smoking Status: Current every day smoker Alcohol: Occasional - Last drink 02/16 Drugs: None Review of Systems General: Denies: Chills, Fever Eyes: Denies: Visual changes - bilaterally ENT: Denies: Bilateral ear pain Cardiovascular: Denies: Chest pain Respiratory: Denies: Dyspnea, Cough Gastrointestinal: Denies: Abdominal pain Skin: Reports: Abrasions, Wounds Neurological: Denies: Headache Psych: Denies: Suicidal thoughts Physical Exam Vital Signs/Narrative: Vital Signs Temp Pulse Resp BP Pulse Ox 02/20/20 14:55 96.5 F L 108 H 17 147/89 H 95 Inital Vital Signs reviewed: Yes General: Well nourished, Well developed Head: Normocephalic ENT: Moist mucous membranes Neck: Supple Cardiovascular: Regular rate, Regular rhythm Respiratory: No distress, CTA bilaterally Abdomen: Soft, Nontender Extremities: - - Superficial linear abrasions to the thighs bilaterally. No deep wounds noted. No sign of infection. Neurological: Alert, Oriented x3, Normal Strength, Normal Sensation Psychological: Normal affect - Patient forthcoming with information. Denies suicidal ideation. Diagnostic/Tx/Re-eval - Medical Decision Making Patient's wounds will be cleansed and dressed. On my interview with her she denies suicidal ideation. She states that she cuts to feel something and is to release her feelings, not with the intention of killing herself. Patient was also seen and evaluated by social work. They agree at this time patient does not meet criteria for transfer as she continues to deny suicidal ideation. Patient does follow-up with [facility] and has an appointment tomorrow morning at 9 AM with Behavioral Health as well. ED Disposition - Plan for ED Patient: Disposition: Home or Assisted Living Diagnosis: Bipolar disorder Instructions: ED Bipolar Disorder Additional Instructions: As discussed, several people will cut themselves to feel pain and release their feelings. If you have any thoughts of killing yourself, please return to the emergency room immediately. Follow-up with Behavioral Health tomorrow morning at 9am as scheduled.
--- NOTE | 2020-02-20 15:17 | NURSING ---
Per Dr. Caceres no sitter needed.
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
== END 2020-02-20 16:12 | disposition home or self-care (01) ==
PROVIDERS: Emergency Provider Emergency Medicine; PCP Pediatrics
DX: F31.9 Bipolar disorder, unspecified (principal); S70.312A Abrasion, left thigh, initial encounter; S70.311A Abrasion, right thigh, initial encounter; X78.9XXA Intentional self-harm by unspecified sharp object, initial encounter; Y93.89 Activity, other specified; Y92.9 Unspecified place or not applicable; Y99.9 Unspecified external cause status; F41.9 Anxiety disorder, unspecified; F60.3 Borderline personality disorder; F43.12 Post-traumatic stress disorder, chronic; F17.200 Nicotine dependence, unspecified, uncomplicated
CPT/HCPCS: 99282

== ENCOUNTER 2020-03-15 22:50 | Emergency (ER) | payer MEDICAID, SELFPAY ==
[2020-03-15 22:51] VITALS: BP 155/88; PULSE 136; RESP 16; TEMP 37.1; O2SAT 94; BMI 46.0
--- NOTE | 2020-03-15 23:03 | ED.VIS.GEN ---
History of Present Illness Chief Complaint: Wound Informant: Patient Narrative: Patient presents with superficial redness and inflammation to her right anterior thigh. She stated she has a self cutting problem. She sees a counselor and psychiatrist for it. Approximately 3 days ago she did some superficial cutting. She noticed today there was some redness in the medial region of some superficial cuts and she was worried they might be infected. No home treatment. Current severity is mild. She noticed some mild drainage from one of the medial superficial cuts. No SI or HI. - Past Medical History (1) Binge eating disorder Status: Acute (2) Suicidal ideation Status: Acute (3) Borderline personality disorder Status: Chronic (4) PTSD (post-traumatic stress disorder) Status: Chronic Past Medical History - Allergies and Home Meds Allergies/Adverse Reactions: Allergies TIDE Allergy (Unknown, Uncoded 02/20/20 14:55) Hives Primary Care Physician: Nataly Araujo MD [Primary Care Provider] - Prior records reviewed: Yes Past Medical History: - - Reviewed Surgical History: noncontributory Lives: With Family Smoking Status: Current every day smoker Alcohol: None Drugs: None Review of Systems General: Denies: Chills, Fever, Sweats Eyes: Denies: Visual changes - bilaterally, Diplopia ENT: Denies: Rhinorrhea, Sore throat Cardiovascular: Denies: Chest pain, Palpitations Respiratory: Denies: Dyspnea, Cough, Dyspnea on exertion Gastrointestinal: Denies: Abdominal pain, Nausea, Vomiting, Diarrhea, Melena, Hematochezia Genitourinary: Denies: Dysuria, Hematuria, Frequency Musculoskeletal: Denies: Back pain, Extremity Pain Skin: Reports: Wounds. Denies: Rash Neurological: Denies: Headache, Weakness, Numbness Physical Exam General: Well nourished, Well developed, No Acute Distress Head: Normocephalic, Atraumatic Eyes: Perrl, EOMI ENT: Moist mucous membranes, No rhinorrhea Neck: Supple, Nontender Cardiovascular: Regular rate, Regular rhythm, No murmurs Respiratory: No distress, CTA bilaterally, Chest nontender Abdomen: Soft, Nontender, Nondistended, Normal bowel sounds Back: Nontender, Normal Inspection Extremities: Nontender, No edema Skin: - - Patient has very superficial scratches to the right anterior thigh approximately 10 of them. There are some mild erythema between each of them. No discharge or abscess Neurological: Alert, Oriented x3, Cranial nerves II-XII grossly intact, Normal Strength, Normal Sensation Psychological: Normal affect, Normal Mood Diagnostic/Tx/Re-eval - Medical Decision Making I suspect this is more inflamed inflammation from the scratches. However I will treat her with Keflex just to be sure that she does not have an underlying cellulitis. We will follow-up as an outpatient. ED Disposition - Plan for ED Patient: Disposition: Home or Assisted Living Diagnosis: Cellulitis Instructions: ED Cellulitis Prescriptions: Cephalexin [Keflex] 500 mg PO Q6 #28 cap Transmission Status: Pending to [facility] Referrals: Nataly Araujo MD [Primary Care Provider] -
[2020-03-15 23:20] VITALS: PULSE 112; O2SAT 98
[2020-03-15] MEDS: Cephalexin 250 MG Capsule 500 MG PO (23:20)
== END 2020-03-15 23:35 | disposition home or self-care (01) ==
LOC: ED 23:14
PROVIDERS: Emergency Provider Emergency Medicine; PCP Pediatrics
DX: S70.311A Abrasion, right thigh, initial encounter (principal); X78.9XXA Intentional self-harm by unspecified sharp object, initial encounter; L03.115 Cellulitis of right lower limb; F60.3 Borderline personality disorder; F43.10 Post-traumatic stress disorder, unspecified; F17.200 Nicotine dependence, unspecified, uncomplicated
CPT/HCPCS: 99284

== ENCOUNTER 2020-04-13 09:00 | Outpatient (RCR) | payer MEDICAID, SELFPAY ==
--- NOTE | 2020-04-13 09:00 | BH.SGPN.GN ---
This psychotherapy group was provided via telehealth using two-way, real-time interactive telecommunication technology between the patients and the provider. The interactive telecommunication technology included audio and video. The patient was offered telemedicine as an option for care delivery during the COVID-19 pandemic and consented to this option. Patient location: [place] Provider located at [facility] Behaviors/Verbalizations/Mental Status: []Client alert and oriented, casually dressed. Eye contact fair. Motor activity appropriate. Speech within normal limits. Affect constricted, mood anxious. Thoughts linear, logical, no signs of hallucinations or delusions. Reviewed client?s symptom tracker, no risk or plan for suicide ideation as of 04/13/20. Client Response/Progress/Benefit: []Client responded well to session, listened to peers in group discussion. Client reported feeling ?anxious? this morning due to client?s first day of IOP program. Client declined to share but noted her goal for IOP is to increase healthy coping skills to improve mental health. Benefited from group as client established rapport with other group members. Progress noted as client was willing to share a future goal for IOP. Will continue to promote the use of healthy coping skills and prevent decompensation. Narrative Note: []
--- NOTE | 2020-04-13 09:00 | BH.COMM ---
Communication Note - Communication with Client Communication Note: Completed intial paperwork with patient via Zoom on 04/12/20. No significant changes since pre-admission screening. Completed [place] [facility] Scre[facility]. Long-standing hx of fleeting SI which occurs 2-5 times a week. Denies any active ideations, plan, or intent during screening. Daily thoughts are typcially passive or desire to with Reports last occurence of plan or intent was over 2 weeks ago.
--- NOTE | 2020-04-13 10:05 | BH.SGPN.GN ---
Behaviors/Verbalizations/Mental Status: [] Eye contact is good. Motor activity is appropriate. Appearance is casual. Speech is Appropriate. Mood is anxious. Affect is congruent. Thoughts are linear and logical. No evidence of psychosis. Client Response/Progress/Benefit: [] Pt was an active participant in group discussion and completed group worksheet. Attentive. Provided appropriate feedback. Group worked together to define anger and discussed the ways anger can impact one internally and externally. Pt identified feeling invalidated, betrayed, and guilty as being internal events or feelings that can lead to anger. Pt also identified external ways that he commonly expresses his anger which includes; being passive-aggressive, smoking, and direct it towards others. Benefited from group by increasing understanding of the impact of anger on mental health. Will continue in IOP to prevent maintain safety, stabilize mood, and prevent decompensation. Narrative Note: [] This psychotherapy group was provided via telehealth using two-way, real-time interactive telecommunication technology between the patients and the provider.?The interactive telecommunication technology included audio and video.? ?The patient was offered telemedicine as an option for care delivery during the COVID-19 pandemic and consented to this option. ?Patient location: [place] ?Provider located at [facility]
--- NOTE | 2020-04-13 11:00 | BH.SGPN.GN ---
This psychotherapy group was provided via telehealth using two-way, real-time interactive telecommunication technology between the patients and the provider.?The interactive telecommunication technology included audio and video.? ?The patient was offered telemedicine as an option for care delivery during the COVID-19 pandemic and consented to this option. ?Patient location: [place] ?Provider located at [facility] Behaviors/Verbalizations/Mental Status: []Client alert and oriented, casually dressed and groomed. Eye contact good. Motor activity appropriate. Speech within normal limits. Affect congruent, mood anxious. Thoughts linear, logical, no signs of hallucinations or delusions. Client Response/Progress/Benefit: []Pt was engaged throughout AEB contributing to group discussion and self-reflection. Pt contributed as the group provided examples of physical warning signs for anger and identified personal warning signs. These included: increased heart rate, restlessness, and shaking. Pt reported for more severe anger pt will blackout. Pt contributed as group brainstormed healthy coping skills for better managing anger which included: music, walking/exercise, meditation, reflecting on consequences, and grounding. Pt appeared to benefit from identifying different techniques to manage anger as well as gaining awareness of potential consequences of unmanaged anger. Pt selected using exercising and taking walks as the coping skill pt would like to try to regulate anger. First day of IOP tx. Will continue IOP tx to prevent decompensation, learn healthy coping skills, and increase emotional regulation skills. Narrative Note: []
--- NOTE | 2020-04-17 09:01 | BH.COMM_ITS ---
Communication Note - Communication with Client Communication Note: Client scheduled for IOP program on this date, however did not show for appointment. Therapist attempted to reach out to client and was unable to as client phone is currently out of service. Will continue to reach out as well as follow-up with client residential case manager.
--- NOTE | 2020-04-18 10:58 | BH.COMM_ITS ---
Communication Note - Communication with Client Communication Note: Client scheduled for IOP group on this date, however did not attend and was unable to be contacted as client phone number is out of order. Will attempt to reach out to field nurse case manager for follow-up.
--- NOTE | 2020-04-19 11:22 | BH.COMM_ITS ---
Communication Note - Communication with Client Communication Note: Spoke with pt's caseworker protective services. She spoke with pt and due to inability to wake up in the AM pt no longer wants to participate in IOP. Pt will be discharged after only attending 1 day.
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
== END 2020-04-19 11:39 | disposition home or self-care (01) ==
LOC: BHIOP 09:00
PROVIDERS: Referring Provider Psychiatry & Neurology Psychiatry; Visit Provider Psychiatry & Neurology Psychiatry
DX: F31.4 Bipolar disorder, current episode depressed, severe, without psychotic features (principal); F43.10 Post-traumatic stress disorder, unspecified; F60.3 Borderline personality disorder; Z91.14 Patient's other noncompliance with medication regimen
CPT/HCPCS: H2020

== ENCOUNTER 2020-06-25 23:59 | Emergency (ER) | payer MEDICAID, SELFPAY ==
[2020-06-26] VITALS: BP 122/83; PULSE 116; RESP 16; TEMP 37; O2SAT 97; BMI 47.2
--- NOTE | 2020-06-26 00:19 | EX.ED.GENINJ ---
HPI History of Present Illness Chief Complaint: Nausea/Vomiting/Diarrhea Narrative Narrative: The patient is a 19-year-old female presents to the emergency department nausea, vomiting, diarrhea. Patient states she was under normal state of health. States she was eating applesauce. An hour later, she began to get diffuse abdominal cramping. She states that she vomited multiple times. Shortly thereafter, she began to have loose, watery diarrhea. She states that that also happened multiple times. She denies any fevers or chills. She denies any recent sick contacts. She states she is otherwise been in her normal state of health. [facility] Medical History Agoraphobia Anorexia Binge eating Bipolar 2 disorder Borderline personality disorder Panic disorder PTSD (post-traumatic stress disorder) Scoliosis Situational anxiety Home Medications buspirone 5 mg PO BID 01/26/20 [History Last Taken Unknown] ziprasidone HCl 80 mg PO DAILY 01/26/20 [History Last Taken Unknown] clonazepam 0.5 mg PO QHS PRN PRN 02/08/20 [History Last Taken Unknown] cephalexin 500 mg PO Q6 #28 cap 03/15/20 [Rx Last Taken Unknown] dicyclomine 20 mg PO TIDAC #20 capsule 06/26/20 [Rx Last Taken Unknown] ondansetron 4 mg PO Q8H PRN PRN #10 tab 06/26/20 [Rx Last Taken Unknown] Allergy/AdvReac Type Severity Reaction Status Date / Time TIDE Allergy Unknown Hives Uncoded 06/26/20 00:03 Family History Mother mrdd Breast cancer Father mrdd Esophageal cancer Grandmother Alcoholism Skin cancer Brother Alcoholism Surgical History History of tonsillectomy Social History household members: none number of children: 0 current occupational status: unemployed history of recent travel: No sexually active: Yes Smoking Status: Current every day smoker alcohol intake: current alcohol intake frequency: a few times a month substance use type: does not use what type of physical activity do you participate in: walking, bicycling, swimming and other seatbelt use: always do you feel safe at home: Yes additional social history: single ROS ROS ED Constitutional Constitutional ED: Denies chills or fever(s) Eyes Eyes: Denies blurry vision or change in vision ENT ENT ED: Denies ear pain or sore throat Cardiovascular Cardiovascular: Denies chest pain or palpitations Respiratory/Chest Respiratory/Chest: Denies cough, dyspnea or dyspnea on exertion Gastrointestinal Gastrointestinal: Reports abdominal pain, nausea and vomiting Genitourinary Genitourinary ED: Denies dysuria or urinary frequency Musculoskeletal Musculoskeletal: Denies arthralgias or myalgias Integumentary Denies rash Neurologic Neurologic: Denies headache(s) or paresthesias Psychiatric Psychiatric: Denies anxiety or depression Endocrine Endocrinology: Denies polydipsia or polyuria Allergic/Immunologic Allergic/Immunologic ED: Denies urticaria EXAM Physical Exam Const Vital Signs: 06/26/20 00:00 Temperature 98.6 F Temperature Source Oral Pulse Rate 116 H Respiratory Rate 16 Blood Pressure 122/83 H Blood Pressure Mean 96 Pulse Ox 97 Oxygen Delivery Method Room Air Positive well nourished and well developed General Appearance ED: well developed HEENT Reports normocephalic, head/scalp atraumatic and moist mucous membranes Eyes PERRL and EOMs intact bilaterally Neck no lymphadenopathy and supple General: Negative for tenderness Chest Wall inspection of chest normal Resp normal respiratory effort and clear to auscultation bilaterally Cardio regular rate, regular rhythm and no murmurs GI normal to inspection, nondistended, normoactive bowel sounds Palpation: Negative for tender, guarding or rebound tenderness present Back/Spine no CVA tenderness Cervical Spine: Negative for cervical spine tenderness Thoracic Spine / Upper Back: Negative for thoracic spinal tenderness Extremity normal to inspection General Extremety ED: Negative for tenderness Neuro oriented x3 and CN's II-XII intact bilaterally Neuro Narrative: No focal deficits appreciated. Sensorium / Orientation: alert Psych mental status grossly normal Skin no rashes or lesions noted, no wounds and skin turgor normal MDM MDM MDM Narrative Medical decision making narrative: Patient presents with nausea, vomiting, diarrhea. She is mildly tachycardic on arrival. She has no focal tenderness on her abdomen. IV was established. Labs were obtained. She does have leukocytosis which in review of the history is pretty consistent Rest of her labs are unremarkable. With fluids and Zofran she is feeling improved. My suspicion is that this may be foodborne illness versus gastroenteritis. I am going to treat the patient conservatively. with Zofran and Bentyl. She is now able to drink without issue. She will be discharged home. Impression 1. Gastroenteritis Lab Data Attestation: I reviewed the patient's lab results. Labs: Laboratory Results - last 24 hr 06/26/20 06/26/20 00:20 00:20 WBC 19.9 H RBC 5.49 H Hgb 13.6 Hct 42.8 MCV 78.0 L MCH 24.8 L MCHC 31.8 L RDW Std Deviation 39.7 RDW Coeff of Sharonda 14.3 Plt Count 397 MPV 9.9 Immature Gran % (Auto) 0.400 Neut % (Auto) 83.5 H Lymph % (Auto) 8.6 L Livingston % (Auto) 4.9 Eos % (Auto) 2.3 Baso % (Auto) 0.3 Absolute Neuts (auto) 16.6 H Absolute Lymphs (auto) 1.72 Nucleated RBC % 0 Sodium 138 Potassium 3.6 Chloride 106 Carbon Dioxide 24.0 Anion Gap 8 BUN 12 Creatinine 0.77 Estim Creat Clear Calc 109.10 Est GFR (MDRD) Af Amer 122 Est GFR (MDRD) Non-Af 101 BUN/Creatinine Ratio 15.6 Glucose 126 H Calcium 9.0 Total Bilirubin 0.40 AST 10 L ALT 20 Alkaline Phosphatase 101 Total Protein 8.7 H Albumin 3.4 Globulin 5.3 H Albumin/Globulin Ratio 0.6 L Discharge Plan Triage Chief Complaint: Nausea/Vomiting/Diarrhea ED Provider: Gabriele Jacome Dx/Rx/DC Orders Instructions: ED Food Poison Or Gastroenteritis Prescriptions: New ondansetron [ondansetron] 4 MG tablet 4 mg PO Q8H PRN PRN (Reason: Nausea) Qty: 10 RF: 0 dicyclomine 10 MG capsule 20 mg PO TIDAC Qty: 20 RF: 0 No Action buspirone 5 MG tablet 5 mg PO BID RF: 0 ziprasidone HCl 80 MG capsule 80 mg PO DAILY RF: 0 clonazepam 0.5 MG tablet 0.5 mg PO QHS PRN PRN (Reason: Anxiety) RF: 0 cephalexin 500 MG capsule 500 mg PO Q6 Qty: 28 RF: 0 Primary Care Provider: Care Physician,No Primary Referrals: Care Physician,No Primary [Primary Care Provider] -
[2020-06-26] MEDS: 0.9% Normal Saline 1,000 ML 1000 ML IV (00:32)
[2020-06-26] MEDS: Ondansetron 4 MG/2 ML Vial IV (00:32)
[2020-06-26 00:36] LABS: Absolute Lymphocyte Count 1.72 X10^3/uL (0.83-4.51); Absolute Neutrophil Count 16.6 X10^3/uL (2.0-7.7); Basophil# 0.06 X10^3/uL; Basophil% 0.3 % (0-1); Eosinophil# 0.46 X10^3/uL; Eosinophils% 2.3 % (0-5); Hematocrit 42.8 % (37-47); Hemoglobin 13.6 g/dL (12.0-15.0); Lymphocyte # 1.72 X10^3/ul (0.83-4.51); Lymphocyte % 8.6 % (19-41); Mean Corp Hgb Conc 31.8 g/dL (32-36); Mean Corpuscular Hgb 24.8 pg (27.0-32.0); Mean Platelet Vol. 9.9 fl (6.2-12.0); Monocyte# 0.98 X10^3/uL; Monocyte% 4.9 % (0-10); NRBC Flagged by Analyzer 0 % (0-5); Neutrophil % 83.5 % (47-70); Platelet Count 397 K/mm3 (150-450); RBC Distribution Width CV 14.3 % (11.6-14.6); RBC Distribution Width SD 39.7 fl (35.1-43.9); Red Blood Count 5.49 M/mm3 (4.2-5.4); White Blood Count 19.9 K/mm3 (4.4-11.0)
[2020-06-26 00:54] LABS: ALB/GLOB Ratio 0.6 RATIO (0.9-2.4); AST(SGOT) 10 U/L (15-37); Alanine Aminotransfer ALT/SGPT 20 U/L (13-56); Albumin, Serum 3.4 g/dL (3.2-5.0); Alkaline Phosphatase 101 U/L (45-117); Anion Gap 8 (5-15); BUN 12 mg/dL (7-18); BUN/Creat Ratio 15.6 RATIO (10-20); Chloride 106 mmol/L (98-107); Creatinine, Serum 0.77 mg/dL (0.55-1.02); EST Glomerular Filtration Rate 101 mL/min (>60); Est Glom Filt Rate - Afr Amer 122 mL/min (>60); Globulin 5.3 g/dL (2.2-4.2); Glucose 126 mg/dL (74-106); Potassium 3.6 mmol/L (3.5-5.1); Protein, Total 8.7 g/dL (6.4-8.2); Sodium Level 138 mmol/L (136-145)
[2020-06-26 01:40] VITALS: BP 108/72; PULSE 94; RESP 16; TEMP 36.6; O2SAT 97
[2020-06-26 01:45] LABS: Mucous, Urine 0 SEEN /hpf (<or=2+)
[2020-06-26 01:49] LABS: Color, Urine Yellow (Yellow); Glucose, Dipstick Normal (Normal); Ketone-Dipstick 50 mg/dl (Negative); Leukocyte Esterase-Dipstick 500 /ul (Negative); Nitrite-Dipstick Negative (Negative); Occult Blood-Urine 150 /ul (Negative); Protein-Dipstick 30 mg/dl (Negative); Specific Gravity, Urine 1.025 (1.002-1.030); Urine Bilirubin Dipstick Negative (Negative); Urine Clarity Clear (Clear); Urine Urobilinogen Normal (Normal)
--- NOTE | 2020-06-26 01:51 | ED.RN ---
Patient states she does not have the money to pay for a cab and does not have anyone who can come to get her to take her home. She has [facility] and is calling the number on the back of her card. Lab called to say need more urine but that is all we have. Talked to Dr Walker and he states he is okay with it. She is aware to check with pharm regarding the bentyl before taking regarding a pregnancxy test.
[2020-06-26 01:56] LABS: Bacteria 2+ /hpf (None Seen)
[2020-06-26 01:57] LABS: Red Blood Cells-Urine 0-5 SEEN /hpf (0-5); Squamous Epithelial Cells - UA 0-5 SEEN /hpf (5-10); White Blood Cells 0-5 SEEN /hpf (0-5)
[2020-06-26 04:25] VITALS: RESP 17
[2020-06-26 05:54] VITALS: PULSE 66; RESP 14; O2SAT 98
== END 2020-06-26 06:13 ==
PROVIDERS: Emergency Provider Emergency Medicine
DX: K52.9 Noninfective gastroenteritis and colitis, unspecified (principal); F31.81 Bipolar II disorder; F17.200 Nicotine dependence, unspecified, uncomplicated; Z79.899 Other long term (current) drug therapy
CPT/HCPCS: 80053; 81001; 85025; 96361; 96374; 99285; J7030; J2405

== ENCOUNTER 2020-07-02 16:37 | Outpatient (REF) | payer SELFPAY | END 2020-07-02 20:37 | disposition home or self-care (01) | LOC: EDREF 16:37 | DX: Z04.41 Encounter for examination and observation following alleged adult rape (principal) ==

== ENCOUNTER 2020-08-07 17:04 | Emergency (ER) | payer MEDICAID, SELFPAY ==
[2020-08-07 17:06] VITALS: BP 117/83; PULSE 132; RESP 16; TEMP 36.8; O2SAT 100; BMI 47.0
--- NOTE | 2020-08-07 17:57 | EKG12_ITS ---
Test Reason : CP Blood Pressure : / mmHG Vent. Rate : 123 BPM Atrial Rate : 125 BPM P-R Int : 138 ms QRS Dur : 090 ms QT Int : 320 ms P-R-T Axes : 056 003 025 degrees QTc Int : 458 ms Sinus tachycardia Otherwise normal ECG Confirmed by MINERVA GARCIA, KIMBERLY ([id number]), news editor ANI FERRARA ([id number]) on 08/09/2020 10:09:31 AM Referred By: GILLES Confirmed By:KIMBERLY PALMA MD
--- NOTE | 2020-08-07 17:57 | EX.ED.DYSGE1 ---
HPI History of Present Illness Chief Complaint: Neuro S/Sx Informant: patient Narrative Narrative: Patient presents today because she was having left arm and face tingling. She states that she felt dizzy and lightheaded because she had only smoke cigarettes and drank iced coffee all day. She was walking to get some food when this started. She then became anxious and the symptoms started. Currently she states that this symptom is gone but she is now having tingling in the right hand. Right now she is sensory overload. She tells me she is post to be on some psychiatric medications but she took her self off of them and has not had a follow-up psychiatric appointment. No chest pain, shortness of breath or headache. [facility] Medical History Agoraphobia Anorexia Binge eating Bipolar 2 disorder Borderline personality disorder Panic disorder PTSD (post-traumatic stress disorder) Scoliosis Situational anxiety Home Medications buspirone 5 mg PO BID 01/26/20 [History Last Taken Unknown] ziprasidone HCl 80 mg PO DAILY 01/26/20 [History Last Taken Unknown] clonazepam 0.5 mg PO QHS PRN PRN 02/08/20 [History Last Taken Unknown] cephalexin 500 mg PO Q6 #28 cap 03/15/20 [Rx Last Taken Unknown] dicyclomine 20 mg PO TIDAC #20 capsule 06/26/20 [Rx Last Taken Unknown] ondansetron 4 mg PO Q8H PRN PRN #10 tab 06/26/20 [Rx Last Taken Unknown] Allergy/AdvReac Type Severity Reaction Status Date / Time TIDE Allergy Unknown Hives Uncoded 08/07/20 17:06 Family History Mother mrdd Breast cancer Father mrdd Esophageal cancer Grandmother Alcoholism Skin cancer Brother Alcoholism Surgical History History of tonsillectomy Social History household members: none number of children: 0 current occupational status: unemployed history of recent travel: No sexually active: Yes Smoking Status: Current some day smoker tobacco type: cigarettes alcohol intake: current alcohol intake frequency: a few times a month substance use type: does not use what type of physical activity do you participate in: walking, bicycling, swimming and other seatbelt use: always do you feel safe at home: Yes additional social history: single ROS ROS ED Constitutional Constitutional ED: Denies chills or fever(s) Eyes Eyes: Denies blurry vision, change in vision or diplopia ENT ENT ED: Denies ear pain, rhinorrhea or sore throat Cardiovascular Cardiovascular: Denies chest pain or palpitations Respiratory/Chest Respiratory/Chest: Denies cough, dyspnea or sputum Gastrointestinal Gastrointestinal: Denies abdominal pain, diarrhea, nausea or vomiting Genitourinary Genitourinary ED: Denies dysuria, hematuria or urinary frequency Musculoskeletal Musculoskeletal: Denies back pain or neck pain Integumentary Denies change in pigmentation or rash Neurologic Neurologic: Reports paresthesias Psychiatric Psychiatric: Reports anxiety Endocrine Endocrinology: Denies polydipsia or polyuria EXAM Physical Exam Const Vital Signs: 08/07/20 17:06 Temperature 98.3 F Temperature Source Temporal Pulse Rate 132 H Respiratory Rate 16 Blood Pressure 117/83 H Blood Pressure Mean 94 Pulse Ox 100 Oxygen Delivery Method Room Air Positive well nourished and well developed General Appearance ED: well developed and NAD HEENT Reports moist mucous membranes normocephalic and atraumatic; Negative for tenderness Eyes PERRL and EOMs intact bilaterally Neck supple and no JVD Chest Wall Chest: Negative for tenderness Resp normal respiratory effort and clear to auscultation bilaterally Effort and Inspection: Negative for respiratory distress Cardio regular rate, regular rhythm and no murmurs Rate: regular rate Rhythm: regular rhythm GI soft to palpation, non-tender and non-distended Palpation: soft Back/Spine no CVA tenderness and no thoracic nor lumbar tenderness Cervical Spine: Negative for cervical spine tenderness Extremity normal to inspection and full ROM General Extremety ED: Negative for tenderness Neuro oriented x3, CN's II-XII intact bilaterally and no sensory deficits noted Neuro Narrative: Her sensation, strength are equal bilaterally. There is no facial droop. Sensorium / Orientation: awake and alert Motor Exam: strength 5/5 throughout Psych mental status grossly normal Skin no rashes or lesions noted MDM MDM MDM Narrative Medical decision making narrative: The patient was given Ativan. Labs show a white blood cell 11.8, chloride of 108. Her potassium is 3.4. EKG was sinus tachycardia. Upon reevaluation she is improved. I believe all of her symptoms were due to a panic attack. I do not feel she requires any imaging. Her neurologic exam is been normal throughout her entire ED stay. She will be discharged to continue her home indications and follow-up with her psychiatrist Lab Data Labs: Laboratory Results - last 24 hr 08/07/20 08/07/20 18:50 18:50 WBC 11.8 H RBC 5.14 Hgb 12.8 Hct 40.7 MCV 79.2 L MCH 24.9 L MCHC 31.4 L RDW Std Deviation 40.9 RDW Coeff of Sharonda 14.2 Plt Count 372 MPV 10.1 Immature Gran % (Auto) 0.300 Neut % (Auto) 74.4 H Lymph % (Auto) 18.4 L Gibson % (Auto) 4.4 Eos % (Auto) 2.0 Baso % (Auto) 0.5 Absolute Neuts (auto) 8.8 H Absolute Lymphs (auto) 2.17 Nucleated RBC % 0 Sodium 141 Potassium 3.4 L Chloride 108 H Carbon Dioxide 26.0 Anion Gap 7 BUN 9 Creatinine 0.70 Estim Creat Clear Calc 124.67 Est GFR (MDRD) Af Amer 137 Est GFR (MDRD) Non-Af 113 BUN/Creatinine Ratio 12.9 Glucose 90 Calcium 9.1 EKG Initial EKG: Comments: Sinus tachycardia with a rate of 123. No ST changes. QTc 458, OK 138 Discharge Plan Triage Chief Complaint: Neuro S/Sx ED Provider: Kosta Kaplan Dx/Rx/DC Orders Clinical Impression: Panic attack Instructions: ED Panic Attack Prescriptions: No Action buspirone 5 MG tablet 5 mg PO BID RF: 0 ziprasidone HCl 80 MG capsule 80 mg PO DAILY RF: 0 clonazepam 0.5 MG tablet 0.5 mg PO QHS PRN PRN (Reason: Anxiety) RF: 0 cephalexin 500 MG capsule 500 mg PO Q6 Qty: 28 RF: 0 ondansetron [ondansetron] 4 MG tablet 4 mg PO Q8H PRN PRN (Reason: Nausea) Qty: 10 RF: 0 dicyclomine 10 MG capsule 20 mg PO TIDAC Qty: 20 RF: 0 Primary Care Provider: Care Physician,No Primary Referrals: Care Physician,No Primary [Primary Care Provider] - Disposition Disposition: Home, self care
[2020-08-07] MEDS: LORazepam 1 MG Tablet PO (18:56)
[2020-08-07 19:02] VITALS: BMI 47.0
[2020-08-07 19:04] LABS: Absolute Lymphocyte Count 2.17 X10^3/uL (0.83-4.51); Absolute Neutrophil Count 8.8 X10^3/uL (2.0-7.7); Basophil# 0.06 X10^3/uL; Basophil% 0.5 % (0-1); Eosinophil# 0.24 X10^3/uL; Hematocrit 40.7 % (37-47); Hemoglobin 12.8 g/dL (12.0-15.0); Lymphocyte # 2.17 X10^3/ul (0.83-4.51); Lymphocyte % 18.4 % (19-41); Mean Corp Hgb Conc 31.4 g/dL (32-36); Mean Corpuscular Hgb 24.9 pg (27.0-32.0); Mean Corpuscular Volume 79.2 fL (81-99); Mean Platelet Vol. 10.1 fl (6.2-12.0); Monocyte# 0.52 X10^3/uL; Monocyte% 4.4 % (0-10); NRBC Flagged by Analyzer 0 % (0-5); Neutrophil # 8.75 X10^3/uL (2.7-7.7); Neutrophil % 74.4 % (47-70); Platelet Count 372 K/mm3 (150-450); RBC Distribution Width CV 14.2 % (11.6-14.6); RBC Distribution Width SD 40.9 fl (35.1-43.9); Red Blood Count 5.14 M/mm3 (4.2-5.4); White Blood Count 11.8 K/mm3 (4.4-11.0)
[2020-08-07 19:41] LABS: Anion Gap 7 (5-15); BUN 9 mg/dL (7-18); BUN/Creat Ratio 12.9 RATIO (10-20); Calcium,Total 9.1 mg/dL (8.5-10.1); Chloride 108 mmol/L (98-107); EST Glomerular Filtration Rate 113 mL/min (>60); Est Glom Filt Rate - Afr Amer 137 mL/min (>60); Estimated Creatinine Clearance 124.67 ml/min; Glucose 90 mg/dL (74-106); Potassium 3.4 mmol/L (3.5-5.1); Sodium Level 141 mmol/L (136-145)
[2020-08-07 19:52] VITALS: PULSE 110
== END 2020-08-07 19:56 | disposition home or self-care (01) ==
PROVIDERS: Emergency Provider Emergency Medicine
DX: F41.0 Panic disorder [episodic paroxysmal anxiety] (principal); F17.210 Nicotine dependence, cigarettes, uncomplicated
CPT/HCPCS: 36415; 80048; 85025; 93005; 99285; A4216

== ENCOUNTER 2020-08-22 13:03 | Emergency (ER) | payer MEDICAID, SELFPAY ==
[2020-08-22] VITALS (8 sets, daily range): BP systolic 105–124; BP diastolic 59–105; PULSE 71–119; RESP 16–18; TEMP 36.4; O2SAT 95–99; BMI 43.0
--- NOTE | 2020-08-22 13:22 | ED.RN ---
MAINSTREAMING FACILITATOR INFOMRED OF PT MODERATE SI RISK SCREEN ON TRIAGE, REPORTS SHE WILL SEE PT.
--- NOTE | 2020-08-22 13:30 | EKG12_ITS ---
Test Reason : SOB Blood Pressure : / mmHG Vent. Rate : 071 BPM Atrial Rate : 071 BPM P-R Int : 130 ms QRS Dur : 092 ms QT Int : 382 ms P-R-T Axes : 033 -06 012 degrees QTc Int : 415 ms Normal sinus rhythm with sinus arrhythmia Normal ECG Confirmed by MINERVA GARCIA, KIMBERLY ([id number]), book editor ANI FERRARA ([id number]) on 08/24/2020 1:10:34 PM Referred By: LAUREN Confirmed By:KIMBERLY PALMA MD
--- NOTE | 2020-08-22 13:34 | EX.ED.DYSGE1 ---
HPI History of Present Illness Chief Complaint: Asthma Informant: patient Onset/Context/Timing Onset: Today Current Severity: Mild Maximum Severity: Moderate Narrative Narrative: Patient presents secondary to worsening asthma and a bunch of other complaints. Patient states that she left her house today to walk to the bus stop. She states that she became very short of breath and feels like her asthma is acting up. She does report that the heat humidity tend to make her breathing worse. She also states that she has been having a lot of mental health problems. She states she has been wanting to come in for the past week to get help. She does report an eating disorder and states she has not been eating regularly for the last month. She denies eating anything the last 3 days. She does have thoughts of harming herself but no specific plan at this time. [facility] Medical History Agoraphobia Anorexia Binge eating Bipolar 2 disorder Borderline personality disorder Panic disorder PTSD (post-traumatic stress disorder) Scoliosis Situational anxiety Home Medications ziprasidone HCl [Geodon] 40 mg PO QHS 08/22/20 [History Last Taken Unknown] Allergy/AdvReac Type Severity Reaction Status Date / Time TIDE Allergy Unknown Hives Uncoded 08/22/20 13:03 Family History Mother mrdd Breast cancer Father mrdd Esophageal cancer Grandmother Alcoholism Skin cancer Brother Alcoholism Surgical History History of tonsillectomy Social History household members: none number of children: 0 current occupational status: unemployed history of recent travel: No sexually active: Yes Smoking Status: Current some day smoker tobacco type: cigarettes alcohol intake: current alcohol intake frequency: a few times a month substance use type: does not use what type of physical activity do you participate in: walking, bicycling, swimming and other seatbelt use: always do you feel safe at home: Yes additional social history: single ROS ROS ED Constitutional Constitutional ED: Denies chills or fever(s) Eyes Eyes: Denies change in vision ENT ENT ED: Denies sore throat Cardiovascular Cardiovascular: Denies chest pain Respiratory/Chest Respiratory/Chest: Reports dyspnea; Denies cough Gastrointestinal Gastrointestinal: Denies abdominal pain, diarrhea, nausea or vomiting Genitourinary Genitourinary ED: Denies dysuria Musculoskeletal Musculoskeletal: Denies back pain Integumentary Denies rash Neurologic Neurologic: Denies headache(s) or weakness Psychiatric Psychiatric: Reports anxiety, depression and suicidal thoughts Endocrine Endocrinology: Denies polydipsia or polyuria Allergic/Immunologic Allergic/Immunologic ED: Denies urticaria EXAM Physical Exam Const Vital Signs: 08/22/20 13:04 08/22/20 13:07 08/22/20 13:28 Temperature 97.6 F L Temperature Source Temporal Pulse Rate 119 H 82 Respiratory Rate 18 17 Respiratory Effort Normal Non-Labored Respiratory Depth Normal Respiratory Pattern Normal Blood Pressure 109/63 105/62 Blood Pressure Mean 78 76 Pulse Ox 97 95 Oxygen Delivery Method Room Air Room Air 08/22/20 14:36 Temperature Temperature Source Pulse Rate 71 Respiratory Rate 16 Respiratory Effort Respiratory Depth Respiratory Pattern Blood Pressure Blood Pressure Mean Pulse Ox 99 Oxygen Delivery Method Room Air Positive well nourished and well developed General Appearance ED: well developed HEENT Reports normocephalic and head/scalp atraumatic Eyes PERRL and EOMs intact bilaterally Neck supple Chest Wall inspection of chest normal and palpation of chest normal Resp normal respiratory effort and clear to auscultation bilaterally Cardio regular rate and regular rhythm GI normal to inspection, nondistended, normoactive bowel sounds Palpation: soft Extremity normal to inspection Neuro oriented x3 and no sensory deficits noted Sensorium / Orientation: alert Motor Exam: strength 5/5 throughout Psych mental status grossly normal Skin no rashes or lesions noted MDM MDM MDM Narrative Medical decision making narrative: Patient was given a DuoNeb treatment. Lab work for mental health placement was obtained. Lab Data Attestation: I reviewed the patient's lab results. Labs: Laboratory Results - last 24 hr 08/22/20 08/22/20 08/22/20 14:28 14:28 14:28 WBC 10.0 RBC 5.63 H Hgb 14.1 Hct 44.1 MCV 78.3 L MCH 25.0 L MCHC 32.0 RDW Std Deviation 40.2 RDW Coeff of Sharonda 14.2 Plt Count 371 MPV 10.1 Immature Gran % (Auto) 0.400 Neut % (Auto) 68.7 Lymph % (Auto) 22.8 Baker % (Auto) 4.3 Eos % (Auto) 3.2 Baso % (Auto) 0.6 Absolute Neuts (auto) 6.9 Absolute Lymphs (auto) 2.28 Nucleated RBC % 0 Sodium 139 Potassium 3.6 Chloride 106 Carbon Dioxide 26.0 Anion Gap 7 BUN 11 Creatinine 0.79 Estim Creat Clear Calc 110.46 Est GFR (MDRD) Af Amer 119 Est GFR (MDRD) Non-Af 98 BUN/Creatinine Ratio 13.9 Glucose 87 Calcium 9.6 Serum , Qual Ur Drug Screen Comment Ethyl Alcohol < 3.0 08/22/20 08/22/20 14:28 15:05 WBC RBC Hgb Hct MCV MCH MCHC RDW Std Deviation RDW Coeff of Sharonda Plt Count MPV Immature Gran % (Auto) Neut % (Auto) Lymph % (Auto) Baker % (Auto) Eos % (Auto) Baso % (Auto) Absolute Neuts (auto) Absolute Lymphs (auto) Nucleated RBC % Sodium Potassium Chloride Carbon Dioxide Anion Gap BUN Creatinine Estim Creat Clear Calc Est GFR (MDRD) Af Amer Est GFR (MDRD) Non-Af BUN/Creatinine Ratio Glucose Calcium Serum , Qual NEGATIVE Ur Drug Screen Comment Ethyl Alcohol Radiography Diagnostic Testing: Radiology Impression Chest X-Ray 08/22/20 14:52 IMPRESSION: Normal x-ray examination of the chest. Electronically Signed: Stevenson Lopez MD at 15:04 EDT , Service support , EKG Initial EKG: Attestation: I personally reviewed and interpreted this EKG as follows: Interpretation: Sinus Rhythm (Sinus at 71 with no acute ischemia.) Treatment and Re-Evaluation Comments:: Patient has been seen by social work. Patient is a voluntary admission to [facility]. Labs have been sent to them and we are awaiting bed assignment. Discharge Plan Triage Chief Complaint: Asthma ED Provider: Jazzy Caceres Dx/Rx/DC Orders Clinical Impression: Asthma exacerbation, Suicidal ideation, Depression Prescriptions: No Action ziprasidone HCl [Geodon] 40 mg Capsule 40 mg PO QHS RF: 0 Primary Care Provider: Care Physician,No Primary Referrals: Care Physician,No Primary [Primary Care Provider] - Disposition Disposition: Psychiatric Hospital or Unit Discharge Location: [facility]
--- NOTE | 2020-08-22 14:08 | CM.ED ---
SOCIAL WORK Call to [facility] to check on bed availability. Intake reports bed available. Will fax referral once medically cleared. Winnie Odom MSW, CIRCULAR KNIFE MACHINE CUTTER
[2020-08-22] MEDS: Ipratropium/Albuterol Sulfate 3 ML AMPUL.NEB INHALATION (14:33)
[2020-08-22 14:37] LABS: Absolute Lymphocyte Count 2.28 X10^3/uL (0.83-4.51); Absolute Neutrophil Count 6.9 X10^3/uL (2.0-7.7); Basophil# 0.06 X10^3/uL; Basophil% 0.6 % (0-1); Eosinophil# 0.32 X10^3/uL; Eosinophils% 3.2 % (0-5); Hematocrit 44.1 % (37-47); Hemoglobin 14.1 g/dL (12.0-15.0); Lymphocyte # 2.28 X10^3/ul (0.83-4.51); Lymphocyte % 22.8 % (19-41); Mean Corpuscular Volume 78.3 fL (81-99); Mean Platelet Vol. 10.1 fl (6.2-12.0); Monocyte# 0.43 X10^3/uL; Monocyte% 4.3 % (0-10); NRBC Flagged by Analyzer 0 % (0-5); Neutrophil # 6.89 X10^3/uL (2.7-7.7); Neutrophil % 68.7 % (47-70); Platelet Count 371 K/mm3 (150-450); RBC Distribution Width CV 14.2 % (11.6-14.6); RBC Distribution Width SD 40.2 fl (35.1-43.9); Red Blood Count 5.63 M/mm3 (4.2-5.4)
[2020-08-22 14:46] LABS: Anion Gap 7 (5-15); BUN 11 mg/dL (7-18); BUN/Creat Ratio 13.9 RATIO (10-20); Calcium,Total 9.6 mg/dL (8.5-10.1); Chloride 106 mmol/L (98-107); Creatinine, Serum 0.79 mg/dL (0.55-1.02); EST Glomerular Filtration Rate 98 mL/min (>60); Est Glom Filt Rate - Afr Amer 119 mL/min (>60); Estimated Creatinine Clearance 110.46 ml/min; Glucose 87 mg/dL (74-106); Potassium 3.6 mmol/L (3.5-5.1); Sodium Level 139 mmol/L (136-145)
--- NOTE | 2020-08-22 14:52 | RAD_ITS ---
STUDY: X-RAY CHEST REASON FOR EXAM: Female, 19 years old. Shortness of breath. History of asthma. TECHNIQUE: Single AP portable view of the chest. COMPARISON: Comparison is made with prior study dated 02/15/2020. FINDINGS: The lungs are clear and expanded. There is no demonstrated pleural abnormality. Normal size heart. Normal mediastinum and kalli. Normal visualized pulmonary arteries. Normal visualized aortic arch and descending thoracic aorta. Normal visualized thoracic spine. Normal visualized ribs, clavicles, and shoulders. There is no demonstrated abnormality of the visualized soft tissue structures of the upper abdomen. RAD/Chest 1 View (Portable) IMPRESSION: Normal x-ray examination of the chest. Electronically Signed: Stevenson Lopez MD at 15:04 EDT , Service support ,
[2020-08-22 14:55] LABS: Internal QC Validated? YES +Cl - CLEAR BKGD; Pregnancy, Serum, hCG Quali. NEGATIVE Negative
[2020-08-22 14:58] LABS: Alcohol, Blood (Medical)-Serum < 3.0 mg/dL
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
[2020-08-22 15:30] LABS: Amphetamine Urine VISTA NEGATIVE (<1000 ng/mL); Barbiturate Urine VISTA NEGATIVE (< 200 ng/mL); Benzodiazepine Urine VISTA NEGATIVE (< 200 ng/mL); Cocaine Urine VISTA NEGATIVE (< 300 ng/mL); Ecstacy Urine VISTA NEGATIVE (< 500 ng/mL); Methadone Urine VISTA NEGATIVE (< 300 ng/mL); PCP Urine VISTA NEGATIVE (< 25 ng/mL); THC Urine VISTA NEGATIVE (< 50 ng/mL); Vista UDS pH Range 6
--- NOTE | 2020-08-22 17:26 | CM.ED ---
SOCIAL WORK Call to [facility] to check on status of referral. 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 Call to [facility]. Intake reports available beds. Referral faxed at this time. Winnie Odom MSW, STOCK PULLER
--- NOTE | 2020-08-22 18:22 | CM.ED ---
SOCIAL WORK Call to [facility] to check on status of referral. Intake reports working on referral at this time and will call back. Winnie Odom, FREEZING MACHINE OPERATOR, SYSTEM ADMINISTRATION MANAGER
--- NOTE | 2020-08-22 20:05 | CM.ED ---
SOCIAL WORK Call to [facility] to check on status of referral. Worker reports will call doctor and call this worker back. Winnie Odom, BALANCE TRUER, MANAGER AGENCY
--- NOTE | 2020-08-22 20:47 | CM.ED ---
SOCIAL WORK Patient accepted to [facility] by Dr. Abbott to [address] Nurse to call report to [phone]. [facility] to set up transport. Nurse and patient updated. [place] [facility] faxed per request. Plan: [facility]
[2020-08-23] VITALS: RESP 14
[2020-08-23 01:00] VITALS: RESP 14
[2020-08-23 02:00] VITALS: RESP 16
[2020-08-23] MEDS: Ibuprofen 600 MG Tablet PO (02:00)
[2020-08-23 02:02] VITALS: BP 112/71; PULSE 82; RESP 16; O2SAT 99
== END 2020-08-23 02:20 ==
PROVIDERS: Emergency Provider Emergency Medicine
DX: J45.901 Unspecified asthma with (acute) exacerbation (principal); R45.851 Suicidal ideations; F31.81 Bipolar II disorder; F17.210 Nicotine dependence, cigarettes, uncomplicated; Z79.899 Other long term (current) drug therapy
CPT/HCPCS: 71045; 80048; 80307; 82077; 84703; 85025; 87426; 93005; 94640; 99285; A4216